=== PATIENT | male | born 1975 | race African-American/Black ===

== ENCOUNTER 2023-06-02 01:22 | Emergency (ER) | payer OTHER ==
[~2023-06-02] VITALS: Ht 172.7 cm; Wt 81.8 kg
[2023-06-02 01:32] VITALS: TEMP 99.8
[2023-06-02 02:39] LABS: COVID AG,FIA SOURCE NASAL SWAB
[2023-06-02] MEDS: IBUPROFEN 800 MG TABLET PO ONE (02:58)
[2023-06-02 03:00] LABS: INFLUENZA TYPE B NEGATIVE FOR TYPE B (NEGATIVE); SARS-COV2 (COVID) ANTIGEN,FIA Negative (Negative)
[2023-06-02 03:10] LABS: INFLUENZA TYPE A POSITIVE FOR TYPE A (NEGATIVE)
[2023-06-02 03:27] VITALS: BP 141/90; PULSE 89; RESP 18
== END 2023-06-02 03:27 | disposition left against medical advice (07) ==
LOC: EMS 01:25
DX: R05.9 Cough, unspecified (principal); R42 Dizziness and giddiness; Z20.822 Contact with and (suspected) exposure to COVID-19; Z53.21 Procedure and treatment not carried out due to patient leaving prior to being seen by health care provider
CPT/HCPCS: 87804; 99281; Z7502; Z7610

== ENCOUNTER → 2023-09-17 | Emergency (ER) | payer OTHER ==
[~2023-09-17] VITALS: Ht 177.8 cm; Wt 84.1 kg
[2023-09-17 14:07] VITALS: TEMP 98.2
[2023-09-17 15:59] VITALS: BP 127/70; PULSE 88; RESP 18
== END | disposition home or self-care (01) ==
LOC: EMS 14:03
DX: S01.512A Laceration without foreign body of oral cavity, initial encounter (principal); W26.8XXA Contact with other sharp object(s), not elsewhere classified, initial encounter; Y93.89 Activity, other specified; Y92.89 Other specified places as the place of occurrence of the external cause; Y99.8 Other external cause status
CPT/HCPCS: 99282; Z7502

== ENCOUNTER → 2024-06-06 | Emergency (ER) | payer OTHER ==
[~2024-06-06] VITALS: Ht 172.7 cm; Wt 85.0 kg
[~2024-06-06] MED LIST: ACET-2247 PO; IOHEXOL 350 MG/ML 100 ML VIAL ONE; ONDA-104 PO; PANT-31 PO; SODIUM CHLORIDE 0.9% 100 ML ONE
[2024-06-06 01:58] LABS: BASOPHILS % (AUTO) 0.5 % (0.0-2.0); EOSINOPHILS % (AUTO) 0.2 % (1.0-6.0); HEMATOCRIT 38.9 % (41-53); HEMOGLOBIN 12.2 g/dL (13.5-17.5); LYMPHOCYTES # (AUTO) 1.7 K/uL (1.0-4.8); LYMPHOCYTES % (AUTO) 16.9 % (22.0-44.0); MEAN CORPUSCULAR HEMOGLOBIN 26.7 pg (26.0-34.0); MEAN CORPUSCULAR HGB CONC 31.5 G/dL (31.0-37.0); MEAN CORPUSCULAR VOLUME 85 fL (80-100); MONOCYTES # (AUTO) 0.6 K/uL (0.1-1.0); NEUTROPHILS # (AUTO) 7.7 K/uL (1.8-7.7); NEUTROPHILS % (AUTO) 76.4 % (40.0-70.0); PLATELET COUNT (AUTO) 313 K/uL (150-450); RED BLOOD CELL COUNT(AUTO) 4.59 MIL/uL (4.50-5.90); RED CELL DISTRIBUTION WIDTH 17.4 % (11.5-14.5); WHITE BLOOD COUNT (AUTO) 10.1 K/uL (4.5-11.0)
[2024-06-06 02:08] LABS: APPEARANCE,URINE CLEAR (CLEAR); BILIRUBIN,URINE NEGATIVE (NEGATIVE); COLOR,URINE YELLOW (YELLOW); GLUCOSE, URINE (UA) NEGATIVE (NEGATIVE); KETONES,URINE NEGATIVE (NEGATIVE); LEUKOCYTE ESTERASE ,URINE NEGATIVE (NEGATIVE); NITRATE,URINE NEGATIVE (NEGATIVE); OCCULT BLOOD,URINE TRACE (NEGATIVE); PROTEIN,URINE 100-200,SEE CONFIRM mg/dL (NEGATIVE)
[2024-06-06 02:11] LABS: BACTERIA,URINE None Seen /HPF (None Seen); RBC,URINE 0-2 /HPF (0-2); SQUAMOUS EPITHELIAL CELL,UR Few /LPF (None Seen); SULFOSALICYLIC ACID,URINE 2+ (Negative); WBC,URINE None Seen /HPF (0-5)
[2024-06-06 02:26] LABS: ALANINE AMINOTRANSFERASE 123 U/L (12-78); ALBUMIN 3.7 g/dL (3.4-5.0); ALKALINE PHOSPHATASE 150 U/L (46-116); ANION GAP 13 mmol/L (8-16); BILIRUBIN,TOTAL 0.8 mg/dL (0.1-1.0); CALCIUM, TOTAL 9.1 mg/dL (8.8-10.5); CARBON DIOXIDE 26 mmol/L (22-29); CHLORIDE 102 mmol/L (98-107); CREATININE 1.02 mg/dL (0.60-1.30); GLOMERULAR FILTR. RATE CALC > 60 mL/min (>60); GLUCOSE,RANDOM 174 mg/dL (70-110); POTASSIUM 3.7 mmol/L (3.5-5.1); SODIUM SERUM 141 mmol/L (136-145); TOTAL PROTEIN, SERUM 8.9 g/dL (6.4-8.2)
[2024-06-06 02:30] VITALS: TEMP 97.3
[2024-06-06 02:36] LABS: ASPARTATE AMINOTRANSFERASE 110 U/L (15-37); UREA NITROGEN, BLOOD 5 mg/dL (7-18)
[2024-06-06 02:37] LABS: LIPASE 2752 U/L (16-77)
[2024-06-06 04:30] VITALS: BP 133/85; PULSE 78; RESP 20; O2SAT 100
[2024-06-06] MEDS: FAMOTIDINE 20 MG/2 ML VIAL IVP ONE (04:39)
[2024-06-06] MEDS: SODIUM CHLORIDE 0.9% 1,000 ML IV ONE (04:39)
[2024-06-06] MEDS: MORPHINE SULFATE 4 MG/ML SYRINGE IVP ONE (04:39)
== END | disposition home or self-care (01) ==
LOC: EMS 01:15
DX: K85.90 Acute pancreatitis without necrosis or infection, unspecified (principal); F10.129 Alcohol abuse with intoxication, unspecified; R73.9 Hyperglycemia, unspecified; Y90.6 Blood alcohol level of 120-199 mg/100 ml
CPT/HCPCS: 99285; 74177; 96374; 76705; 96361; 96375; 80048; 80076; 83690; 85025; 36415; 93005; 81001; G0480; Q9967; J3490; J2270; J7030; J7050; 81002